=== PATIENT | male | born 1980 | race Two or more races ===

== ENCOUNTER → 2025-05-09 | Outpatient (CLI) | payer MEDICAID, SELFPAY ==
--- NOTE | 2025-05-09 10:00 | XR_ITS ---
Examination: MRI right ankle without contrast Date and time of exam: May 09, 2025, 1133 hours INDICATIONS: Right heel pain and tenderness months Technique: Multiple MRI axial and sagittal sections lumbar spine. Sagittal T2-weighted images, TR 3500, TE 118 T1 weighted transverse sections, TR 688 T8.5, T2-weighted sagittal sections T1 weighted sagittal sections TR 621, TE 30 T2 axial sections, TR 4, 190, TE 84. Findings: Moderate strain of the Achilles tendon, increased signal in the Achilles tendon beginning 4 cm from the calcaneal insertion Moderate plantar fasciitis No occult fracture or marrow edema bone contusion Anterior posterior inferior tibiofibular ligaments intact Talofibular ligaments intact Tendinitis involving flexor hallucis longus flexor digitorum and posterior tibial tendons Extensor tendons intact IMPRESSION: Moderate sprain Achilles tendon Moderate plantar fasciitis Tendinitis flexor hallucis longus, flexor digitorum, posterior tibial tendons
== END | disposition home or self-care (01) ==
LOC: SMRI 09:46
PROVIDERS: Referring Provider Orthopaedic Surgery; Visit Provider Orthopaedic Surgery
DX: S93.491A Sprain of other ligament of right ankle, initial encounter (principal); X58.XXXA Exposure to other specified factors, initial encounter; M72.2 Plantar fascial fibromatosis; M76.821 Posterior tibial tendinitis, right leg; M77.8 Other enthesopathies, not elsewhere classified
CPT/HCPCS: 73721